=== PATIENT | male | born 1965 | race Caucasian/White ===

== ENCOUNTER 2017-06-19 13:52 | Observation (INO) | payer MEDICARE, OTHER ==
--- NOTE | 2017-06-19 14:12 | ER Document Report ---
ED Medical Screen (RME) - General Chief Complaint: Numbness of Face Stated Complaint: FACE AND ARM NUMBNESS Time Seen by Provider: 06/19/17 14:01 Mode of Arrival: Ambulatory Information source: Patient Notes: 51-year-old male presents with sudden numbness from about nipple line up. Patient states he feels strong but his arms feel heavy and numb symptoms started suddenly at 10 AM I have greeted and performed a rapid initial assessment of this patient. A comprehensive ED assessment and evaluation of the patient, analysis of test results and completion of the medical decision making process will be conducted by additional ED providers. PHYSICAL EXAMINATION: GENERAL: Well-appearing, well-nourished and in no acute distress. HEAD: Atraumatic, normocephalic. EYES: Pupils equal round extraocular movements intact, conjunctiva are normal. ENT: Nares patent NECK: Normal range of motion LUNGS: No respiratory distress Musculoskeletal: Normal range of motion NEUROLOGICAL: Normal speech, normal gait. Subjective paresthesia of hands and had PSYCH: Normal mood, normal affect. SKIN: Warm, Dry, normal turgor, no rashes or lesions noted. TRAVEL OUTSIDE OF THE [place] IN LAST 30 DAYS: No - Related Data Allergies/Adverse Reactions: clarithromycin [From Biaxin] Allergy (Verified 06/19/17 13:55) Home Medications: Current Home Medications Diazepam [Diazepam] 2 mg PO BID 06/19/17 [History] Duloxetine HCl [Duloxetine HCl] 60 mg PO DAILY 06/19/17 [History] Fentanyl [Fentanyl] 1 each TOP Q3DAYS 06/19/17 [History] Gabapentin [Neurontin] 600 mg PO TID 06/19/17 [History] Oxycodone HCl [Oxycodone HCl] 10 mg PO Q8H PRN 06/19/17 [History] Pravastatin Sodium 40 mg PO QPM 06/19/17 [History] Venlafaxine HCl ER [Effexor Xr 37.5 mg Cap.sr] 75 mg PO DAILY 06/19/17 [History] Past Medical History Renal/ Medical History: Denies: Hx Peritoneal Dialysis Physical Exam - Vital signs Vitals: Temp Pulse Resp BP Pulse Ox 98.4 F 87 18 147/89 H 94 06/19/17 13:56 06/19/17 13:56 06/19/17 13:56 06/19/17 13:56 06/19/17 13:56 Course - Vital Signs Vital signs: Temp Pulse Resp BP Pulse Ox 98.4 F 87 18 147/89 H 94 06/19/17 13:56 06/19/17 13:56 06/19/17 13:56 06/19/17 13:56 06/19/17 13:56
--- NOTE | 2017-06-19 14:37 | RADIOLOGY REPORT (SQ) ---
EXAM DESCRIPTION: CT HEAD WITHOUT COMPLETED DATE/TIME: 06/19/2017 2:25 pm REASON FOR STUDY: numbness head, bilateral arms COMPARISON: None. TECHNIQUE: Axial images acquired through the brain without intravenous contrast. Images reviewed wi th bone, brain and subdural windows. Images stored on PACS. All CT scanners at this facility use dose modulation, iterative reconstruction, and/or weight based d osing when appropriate to reduce radiation dose to as low as reasonably achievable (ALARA). [facility]: Dose Right [facility]: CareDose [facility]: Dose Right [facility]: Teradose 4D [facility]: Smart Vendalize RADIATION DOSE: Up-to-date CT equipment and radiation dose reduction techniques were employed. CTDIv ol: 64.6 mGy. DLP: 1163 mGy-cm. mGy. LIMITATIONS: None. FINDINGS: VENTRICLES: Normal size and contour. CEREBRUM: No masses. No hemorrhage. No midline shift. No evidence for acute infarction. Normal gra y/white matter differentiation. No areas of low density in the white matter. CEREBELLUM: No masses. No hemorrhage. No alteration of density. No evidence for acute infarction. EXTRAAXIAL SPACES: No fluid collections. No masses. ORBITS AND GLOBE: No intra- or extraconal masses. Normal contour of globe without masses. CALVARIUM: No fracture. PARANASAL SINUSES: No fluid or mucosal thickening. SOFT TISSUES: No mass or hematoma. OTHER: Minimal left mastoid effusion. Some adjacent sclerosis as well, likely chronic disease. No e vidence of obstructing nasopharyngeal mass. IMPRESSION: 1. No acute intracranial abnormality. 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 EVIDENCE OF ACUTE STROKE: NO. COMMENT: Quality ID # [id number]: Final reports with documentation of one or more dose reduction techniques (e.g., Automated exposure control, adjustment of the mA and/or kV according to patient size, use of iterative reconstruction technique) TECHNICAL DOCUMENTATION: JOB ID: [id number] [employer]- All Rights Reserved
[2017-06-19 14:56] LABS: PROTHROMBIN TIME 13.3 SEC (11.4-15.4)
[2017-06-19 14:58] LABS: ABSOLUTE BASOPHILS # (AUTO) 0.2 10^3/uL (0.0-0.2); ABSOLUTE LYMPHOCYTES (AUTO) 2.1 10^3/uL (0.5-4.7); ABSOLUTE MONOCYTES (AUTO) 0.9 10^3/uL (0.1-1.4); ABSOLUTE NEUT (AUTO) 10.9 10^3/uL (1.7-8.2); BASOPHILS % (AUTO) 1.1 % (0-2); EOSINOPHILS % (AUTO) 0.1 % (0-6); HEMOGLOBIN 14.7 g/dL (13.5-17.0); HGB HCT DIFFERENCE 1.1; LYMPHOCYTES % (AUTO) 14.9 % (13-45); MEAN CORPUSCULAR HEMOGLOBIN 31.3 pg (27.0-33.4); MEAN CORPUSCULAR HGB CONC 34.2 g/dL (32.0-36.0); MEAN CORPUSCULAR VOLUME 91 fl (80-97); MONOCYTES % (AUTO) 6.5 % (3-13); RED CELL DISTRIBUTION WIDTH 13.2 % (11.5-14.0); SEGMENTED NEUTROPHILS % (AUTO) 77.4 % (42-78); WHITE BLOOD COUNT 14.1 10^3/uL (4.0-10.5)
--- NOTE | 2017-06-19 15:08 | RADIOLOGY REPORT (SQ) ---
EXAM DESCRIPTION: CHEST SINGLE VIEW COMPLETED DATE/TIME: 06/19/2017 2:51 pm REASON FOR STUDY: numbness head, bilateral arms COMPARISON: None. NUMBER OF VIEWS: One view. TECHNIQUE: Single frontal radiographic view of the chest acquired. LIMITATIONS: None. FINDINGS: LUNGS AND PLEURA: No opacities, masses or pneumothorax. No pleural effusion. MEDIASTINUM AND HILAR STRUCTURES: No masses. Contour normal. HEART AND VASCULAR STRUCTURES: Heart normal in size. Normal vasculature. BONES: No acute findings. HARDWARE: None in the chest. OTHER: No other significant finding. IMPRESSION: NO SIGNIFICANT RADIOGRAPHIC FINDING IN THE CHEST. TECHNICAL DOCUMENTATION: JOB ID: [id number] [employer]- All Rights Reserved
[2017-06-19 15:10] LABS: ALANINE AMINOTRANSFERASE 17 U/L (21-72); ALBUMIN 4.9 g/dL (3.5-5.0); ALKALINE PHOSPHATASE 79 U/L (38-126); ANION GAP 17 (5-19); ASPARTATE AMINO TRANSFERASE 17 U/L (17-59); BILIRUBIN,DIRECT 0.4 mg/dL (0.0-0.4); BILIRUBIN,TOTAL 0.6 mg/dL (0.2-1.3); BLOOD UREA NITROGEN 10 mg/dL (7-20); CALCIUM 10.5 mg/dL (8.4-10.2); CARBON DIOXIDE 22 mmol/L (22-30); CHLORIDE 106 mmol/L (98-107); CREATINE KINASE 37 U/L (55-170); CREATININE RESULT 0.57 mg/dL (0.52-1.25); GLUCOSE 138 mg/dL (75-110); POTASSIUM 3.7 mmol/L (3.6-5.0); SODIUM 144.9 mmol/L (137-145); TOTAL PROTEIN 7.8 g/dL (6.3-8.2)
[2017-06-19 15:23] LABS: CREATINE KINASE MB < 0.22 ng/mL (<4.55); TROPONIN I < 0.012 ng/mL
--- NOTE | 2017-06-19 15:25 | ER Document Report ---
ED General - General Mode of Arrival: Ambulatory Information source: Patient TRAVEL OUTSIDE OF THE [place] IN LAST 30 DAYS: No - HPI Onset: This morning Associated symptoms: Diarrhea <JULY DONATO - Last Filed: 06/19/17 23:07> <AYDEN UGARTE - Last Filed: 06/19/17 23:19> - General Chief Complaint: Numbness of Face Stated Complaint: FACE AND ARM NUMBNESS Time Seen by Provider: 06/19/17 14:01 Notes: Patient is a 51 year old male with a history of chronic back pain presents to the emergency department complaining of numbness in the arms and face onset around 0900 today. Patient states he had diarrhea in the morning which he felt came from a bug he caught while in the hospital with his brother. Patient states that he was driving home when he started feeling numb and tingly from the nipple line and in his arms and hands. Patient states that he feels weak, and that when he lifts his arms it feels like hes "lifting 400 lbs". Patient denies any pain, headaches, or stiffness in neck. Patient currently has a Fentanyl Transdermal patch that he uses for his chronic back pain. (JULY DONATO) - Related Data Allergies/Adverse Reactions: clarithromycin [From Biaxin] Allergy (Verified 06/19/17 13:55) Home Medications: Current Home Medications Aspirin [Ecotrin 81 mg EC Tablet] 81 mg PO DAILY 06/19/17 [History] Cetirizine HCl [Zyrtec 10 mg Tablet] 10 mg PO DAILY 06/19/17 [History] Diazepam [Diazepam] 2 mg PO BID 06/19/17 [History] Duloxetine HCl [Duloxetine HCl] 60 mg PO DAILY 06/19/17 [History] Fentanyl [Fentanyl] 75 mcg TOP Q3DAYS 06/19/17 [History] Fish Oil/Dha/Epa [Fish Oil 1,200 mg Fish Oil] 1 cap PO DAILY 06/19/17 [History] Gabapentin [Neurontin] 600 mg PO TID 06/19/17 [History] Multivitamin [Multivitamins] 1 cap PO DAILY 06/19/17 [History] Oxycodone HCl [Oxycodone HCl] 10 mg PO Q8H PRN 06/19/17 [History] Pravastatin Sodium 40 mg PO QPM 06/19/17 [History] Venlafaxine HCl ER [Effexor Xr 37.5 mg Cap.sr] 37.5 mg PO BID 06/19/17 [History] Past Medical History - General Information source: Patient - Social History Smoking Status: Current Every Day Smoker Frequency of alcohol use: Rare Drug Abuse: Marijuana - Occasional marijuana usage Family History: Hyperlipidemia, Hypertension Patient has suicidal ideation: No Patient has homicidal ideation: No <JULY DONATO - Last Filed: 06/19/17 23:07> Review of Systems - Review of Systems Constitutional: No symptoms reported EENT: No symptoms reported Cardiovascular: No symptoms reported Respiratory: No symptoms reported Gastrointestinal: See HPI, Diarrhea Genitourinary: No symptoms reported Male Genitourinary: No symptoms reported Musculoskeletal: No symptoms reported Skin: No symptoms reported Hematologic/Lymphatic: No symptoms reported Neurological/Psychological: See HPI, Numbness - Bilateral UE and head., Tingling - Bilater UE, Head <JULY DONATO - Last Filed: 06/19/17 23:07> Physical Exam <JULY DONATO - Last Filed: 06/19/17 23:07> <AYDEN UGARTE - Last Filed: 06/19/17 23:19> - Vital signs Vitals: Temp Pulse Resp BP Pulse Ox 98.4 F 87 18 147/89 H 94 06/19/17 13:56 06/19/17 13:56 06/19/17 13:56 06/19/17 13:56 06/19/17 13:56 - Notes Notes: GENERAL: Alert, interacts well. No acute distress. HEAD: Normocephalic, atraumatic. EYES: Pupils equal, round, and reactive to light. Extraocular movements intact. ENT: Oral mucosa moist, tongue midline. NECK: Full range of motion. Supple. Trachea midline. LUNGS: Clear to auscultation bilaterally, no wheezes, rales, or rhonchi. No respiratory distress. HEART: Regular rate and rhythm. No murmurs, gallops, or rubs. ABDOMEN: Soft, non-tender. Non-distended. Bowel sounds present in all 4 quadrants. EXTREMITIES: Moves all 4 extremities spontaneously. No edema, radial and dorsalis pedis pulses 2/4 bilaterally. No cyanosis. NEUROLOGICAL: Alert and oriented x3. Normal speech. cranial nerves II through XII grossly intact. Biceps and patellar DTRs 2+ bilaterally. Negative pronator drift. Decreased sensation across the RUE. PSYCH: Normal affect, normal mood. SKIN: Warm, dry, normal turgor. No rashes or lesions noted. (JULY DONATO) - Extremities Notes: Unable to differentiate sharp dull sensation diffusely across the right upper extremity. (AYDEN UGARTE) Course - Laboratory Result Diagrams: 06/19/17 14:35 06/19/17 14:35 <JULY DONATO - Last Filed: 06/19/17 23:07> - Laboratory Result Diagrams: 06/19/17 14:35 06/19/17 14:35 <AYDEN UGARTE - Last Filed: 06/19/17 23:19> - Re-evaluation Re-evalutation: 06/19/17 15:36 CBC shows leukocytosis of 14.1, no symptoms to suggest acute infection, uncertain why there is a leukocytosis, coags normal, CMP shows relatively normal glucose as he is not fasting at 138, otherwise unremarkable, cardiac enzymes negative 1, CT scan of head is negative, chest x-ray shows low lung volumes but otherwise unremarkable. No evidence of pneumothorax or pneumonia. I did personally review these films as well as reviewed the reports from radiology. On examination patient has an NIH stroke scale of 1, decreased sensation across the right upper extremity, no other neurologic deficits. At this time am concerned for a very mild stroke. I discussed my concerns with Dr. Dominguez who agrees to place the patient on his service in observation status on the telemetry care floor. Patient has been given aspirin, counseled on the plan and agrees with admission for observation. 06/19/17 23:19 (AYDEN UGARTE) - Vital Signs Vital signs: Temp Pulse Resp BP Pulse Ox 98.5 F 73 16 133/81 H 96 06/19/17 19:02 06/19/17 20:00 06/19/17 20:00 06/19/17 20:00 06/19/17 20:00 - Laboratory Laboratory results interpreted by me: 06/19/17 06/19/17 14:35 14:35 WBC 14.1 H Absolute Neutrophils 10.9 H Glucose 138 H Calcium 10.5 H ALT 17 L Creatine Kinase 37 L - EKG Interpretation by Me Additional EKG results interpreted by me: 06/19/17 15:36 EKG shows sinus rhythm at a rate of 74, normal axis, normal intervals, no ST segment elevations or depressions, there are isolated nonspecific T-wave inversions in lead III per my interpretation. (AYDEN UGARTE) Discharge <JULY DONATO - Last Filed: 06/19/17 23:07> - Discharge Admitting Provider: Hospitalist - [facility] Admitted: Telemetry <AYDEN UGARTE - Last Filed: 06/19/17 23:19> - Discharge Clinical Impression: Acute CVA (cerebrovascular accident) Hypertension Qualifiers: Hypertension type: essential hypertension Qualified Code(s): I10 - Essential ( primary) hypertension Condition: Stable Disposition: ADMITTED OBSERVATION Scribe Attestation: 06/19/17 23:19 I personally performed the services described in the documentation, reviewed and edited the documentation which was dictated to the scribe in my presence, and it accurately records my words and actions. (AYDEN UGARTE) Scribe Documentation - Scribe Written by Marianna:: Marianna Hernandez, 06/19/2017 16:31 acting as scribe for :: Earlene <JULY DONATO - Last Filed: 06/19/17 23:07> ED NIH Stroke Scale - NIH Stroke Scale When completed:: Before Alteplase *: 1. NIH scale should be completed with appropriate accompanying assessment tools. *: 2. The NIH should reflect what the patient is capable of doing and should not be coached by the clinician. 1a. Level of Consciousness: 0=Alert;keenly responsive -: 1=Drowsy -: 2=Obtunded -: 3=Coma/unresponsive or reflex to noxious stimuli. 1a. Responses: 0 1b. Orientation Questions: a. What month is it? -: b. How old are you? -: 0=Answers both questions correctly. -: 1=Answers one question correctly or patient is intubated or has orotracheal trauma. -: 2=Answers neither question correctly. 1b. Responses: 0 1c. Response to commands: a. Open and close eyes? -: b. Connie Scratcher and release hand? -: Credit is given despite weakness. Demonstration of task is permitted. Substitute command if hands cannot be used. -: 0=Performs both tasks correctly -: 1=Performs one task correctly -: 2=Performs neither task correctly 1c. Responses: 0 2. Gaze: Establish eye contact and instruct patient to "Follow my finger" -: 0=Normal -: 1=Partial gaze palsy. Gaze is abnormal in one or both eyes, but where forced deviation or total gaze paresis is not present. -: 2=Forced deviation or total gaze paresis. 2. Responses: 0 3. Visual Nielsen: Sees fingers in all four quadrants. -: 0=No visual loss. -: 1=Partial hemianopsia. -: 2=Complete hemianopsia. -: 3=Bilateral hemianopsia (including Cortical blindness) 3. Responses: 0 4. Facial Movement: Instruct patient to: -: a. Show me your teeth -: b. Raise your eyebrows -: c. Close your eyes -: d. Smile -: 0=Normal symmetrical movement -: 1=Minor paralysis (flattened nasolabial fold, asymmetry on smiling). -: 2=Partial paralysis (total or near total paralysis of lower face). -: 3=Complete paralysis of upper and lower face 4. Responses: 0 5. Motor functions (left arm): Alternate sides and extend each arm with palms down (90 degrees if sitting or 45 degrees for supine). -: 0=No drift;limb holds for full 10 seconds. -: 1=Drift; limb holds but drifts down before full 10 seconds, but does not hit bed. -: 2=Some effort against gravity; limb cannot get to or maintain position. -: 3=No effort against gravity; limb falls. -: 4=No movement. -: UN=Amputation, joint fusion, explain in comments. 5. Responses (left arm): 0 5. Motor Functions (right arm): Alternate sides and extend each arm with palms down (90 degrees if sitting or 45 degrees for supine). -: 0=No drift;limb holds for full 10 seconds. -: 1=Drift; limb holds but drifts down before full 10 seconds, but does not hit bed. -: 2=Some effort against gravity; limb cannot get to or maintain position. -: 3=No effort against gravity; limb falls. -: 4=No movement. -: UN=Amputation, joint fusion, explain in comments. 5. Responses (right arm): 0 6. Motor Functions (left leg): With patient lying supine, alternate sides and extend each leg (30 degrees always while supine). -: 0=No drift, leg holds position for full 5 seconds -: 1=Drift; leg falls before full 5 seconds but does not hit bed. -: 2=Some effort against gravity, leg falls to bed but some effort against gravity. -: 3=No effort against gravity, leg falls to bed immediately. -: 4=No movement. -: UN=Amputation, joint fusion; explain in comments. 6. Responses (left leg): 0 6. Motor Functions (right leg): With patient lying supine, alternate sides and extend each leg (30 degrees always while supine). -: 0=No drift, leg holds position for full 5 seconds -: 1=Drift; leg falls before full 5 seconds but does not hit bed. -: 2=Some effort against gravity, leg falls to bed but some effort against gravity. -: 3=No effort against gravity, leg falls to bed immediately. -: 4=No movement. -: UN=Amputation, joint fusion; explain in comments. 6. Responses (right leg): 0 7. Limb Ataxia: With eyes open instruct patient to: -: a. "Touch your finger to your nose". -: b. "Touch your heel to your bentley" -: 0=Absent -: 1=Present in one limb. -: 2=Present in two limbs. -: UN=Amputation or joint fusion; explain in comments. 7. Responses: 0 8. Sensory: Test sensation using pinprick or noxious stimuli. Test as many body parts as possible. -: 0=Normal;no sensory loss -: 1=Mile to moderate sensory loss (patient feels pin prick but is less sharp on affected side). -: 2=Severe or total sensory loss. 8. Responses: 1 9. Best Language: Instruct patient to: -: a. "Describe what you see in this picture." -: b. "Name the items in this picture." -: c. "Read these sentences." -: 0=No aphasia, normal -: 1=Mild to moderate aphasia. -: 2=Severe aphasia -: 3=Mute, global aphasia, no usable speech or auditory comprehension. 9. Responses: 0 10. Articulation, Dysarthia: Instruct patient to: -: "Read these words" or "Repeat these words" -: 0=Normal -: 1=Mild to moderate; patient may slur some words but can be understood without difficulty. -: 2=Severe; patients speech so slurred as to be unintelligible in the absence of dysphasia. -: UN=Intubated or other physical barrier, explain in comments. 10. Responses: 0 11. Extinction or inattention: 0=No abnormality -: 1= Visual, tactile, auditory, spatial, or personal inattention or extinction to bilateral simulation in one or the sensory modalities. -: 2=Profound myranda-inattention or myranda-inattention to more than one modality; does not recognize own hand. 11. Responses: 0 Total Score: 1 <AYDEN UGARTE - Last Filed: 06/19/17 23:19> ED Alteplase Inc/Exc Criteria - Date/Time patient last known well: Date/Time: 06/19/17 10:00 a.m. - Date/Time patient arrived in ED: _: 06/19/17 13:56 - Inclusion Criteria: 1: Patient presented to ED within 3 hours of acute ischemic stroke symptom onset ? -: No 2: Did baseline CT exclude intracranial hemorrhage and/or other risk factors? -: Yes 3: Is the age of the patient 18 years of age or greater? -: Yes : If any of the above questions are answered "NO" then stop, patient is not a candidate for Alteplase, : If all of the above questions are answered "YES" then continue with Exclusion Criteria. - Exclusion Criteria: 1: Is there evidence of intracranial hemorrhage on baseline CT? -: No 2: Is there suspicion of subarachnoid hemorrhage (even if CT negative)? -: No 3: Is there a history of serious head trauma, recent previous stroke or HI within 3 months? -: No 4: Does the patient have a clinical presentation consistent with HI or post-HI pericarditis? -: No 5: Is there history of intracranial hemorrhage? -: No 6: On repeated measurement is Systolic BP greater than 185mmHg or Diastolic BP greater that 110 mmHg and is aggressive treatment needed to reduce blood pressure to these limits (e.g. constant infusion of an anti-hypertensive)? -: No 7: Did the patient awake with stroke symptoms? -: No 8: Has the patient had a lumbar puncture or an arterial puncture at a non- compressile site within 7 days? -: No 9: With in the last 14 days did the patient have surgery or major trauma? -: No 10: Is the patient or less than 2 weeks? -: No 11: Was there any active bleeding or acute trauma? -: No 12: Does the patient have intracranial neoplasm, arteriovenous malformation or aneurysm? -: No 13: Does the patient have abnormal glucose (less than 50 or greater than 400mg/ dl)? Record glucose in Comment. 14: Patient has rapidly improving symptoms at the time Alteplase is to be Administered. -: No 15: Does the patient have any risks for bleeding, including but not limited to: a.: Current use of Coumadin with PT greater than 15 seconds or INR greater than 1.7. b.: Current use of Pradaxa (Dabigatran). c.: Heparin administereed within the past 48 hours and PTT elevated. d.: Platelet count less than 100,000/mm. e.: Major surgery or serious trauma within 14 days. f.: Gastrointestinal or gynecological urinary bleeding within 14 days. g.: Myocardial Infarction (HI) within 3 months. -: No : If the answer to any of the above questions is "YES" then stop, the patient is not a candidate for Alteplase. : If the answer to all of the above questions is "NO" then the patient may be eligible for the Administration of Alteplase. : If the patient is noted to have seizure activity at onset of Stroke symptoms; Consult Neurologist for further evaluation. - The patient is: -: Included and is eligible to receive Alteplase. *Initiate bed placement at higher level of care* --: No Reviewd risks & benefits of thrombolytic therapy: I have reviewed the risks and benefits of thrombolytic therapy with the patient and/or his/her family. -: Excluded and not eligible to receive Alteplase for the above exclusions. --: Yes -: Excluded and not eligible to receive Alteplase for other reasons (specify in comments): - Diagnosis of TIA: -: Patient presented with transient symptoms that are now resolved and no other neurologic findings are currently present. List symptoms in comments. -: Patient is NOT a candidate for tPA. -: Yes -: ____(put name in comment) has been consulted for admission and continued evaluation of risk factor assessment. Comment: Sangitateed <AYDEN UGARTE - Last Filed: 06/19/17 23:19>
[2017-06-19] MEDS ORDERED: ASPIRIN 325 MG TABLET, ENT COATED PO ONE (15:28)
[2017-06-19] MEDS ORDERED: ACETAMINOPHEN 325 MG TABLET PO PRN (16:28)
[2017-06-19] MEDS ORDERED: ONDANSETRON 4 MG TAB.RAPDIS PO PRN (16:28)
[2017-06-19] MEDS ORDERED: OXYCODONE HCL IR 5 MG TABLET PO PRN (16:33)
--- NOTE | 2017-06-19 16:43 | PDOC H&P ---
History of Present Illness Admission Date/PCP: 06/19/17 16:29 Patient complains of: Numbness and tingling in bilateral arms face and chest to the level of his nipples. History of Present Illness: HAYDEN MCNULTY is a 51 year old male with history of chronic pain on a fentanyl patch and oxycodone who presents with complaints of numbness and tingling in his face neck chest and bilateral arms. He reports that he was driving a car today approximately 10:30 AM and began having symptoms. He did not have any weakness associated with this. He just had numbness and some tingling in his body as described above. This continued and he decided to come to the hospital. He denies having any weakness associated with this. He denies having any dysarthria. Denies any dysphasia. Denies any difficulty with his vision. He had been driving quite a while in his car and has been doing a lot of traveling recently. He denies any headache. He denies any loss of consciousness. Denies any lower extremity symptoms. Denies any bowel or bladder dysfunction. He does relate having an injury when he was 15 years old that caused him to have chronic low back pain. He has never had any imaging done of his neck. Patient is admitted for presumed TIA. Past Medical History Cardiac Medical History: Reports: Hyperlipidema Pulmonary Medical History: Reports: None EENT Medical History: Reports: None Endocrine Medical History: Reports: None Renal/ Medical History: Reports: None Malignancy Medical History: Reports: None GI Medical History: Reports: None Musculoskeltal Medical History: Reports: Other - Chronic low back pain. Skin Medical History: Reports: None Psychiatric Medical History: Reports: None Traumatic Medical History: Reports: Other - Patient fell off a roof at age 15 and has had chronic back pain since then Hematology: Reports: None Infectious Medical History: Reports: None Past Surgical History Past Surgical History: Reports: Orthopedic Surgery - right & left hip arthroplasty. L4-L5 spinal fusion, Tonsillectomy Social History Information Source: Patient Lives with: Spouse/Significant other Smoking Status: Current Every Day Smoker Frequency of Alcohol Use: Rare Hx Recreational Drug Use: No Drugs: None Hx Prescription Drug Abuse: No - Advance Directive Resuscitation Status: Full Code Surrogate healthcare decision maker:: His Family History Family History: Hyperlipidemia, Hypertension Family History: Father at age 77 and hypertension. Mother at age 69 and had a CVA. Parental Family History Reviewed: Yes Children Family History Reviewed: No Sibling(s) Family History Reviewed.: No Medication/Allergy Home Medications: Aspirin [Ecotrin 81 mg EC Tablet] 81 mg PO DAILY 06/19/17 Cetirizine HCl [Zyrtec 10 mg Tablet] 10 mg PO DAILY 06/19/17 Diazepam [Diazepam] 2 mg PO BID 06/19/17 Duloxetine HCl [Duloxetine HCl] 60 mg PO DAILY 06/19/17 Fentanyl [Fentanyl] 75 mcg TOP Q3DAYS 06/19/17 Fish Oil/Dha/Epa [Fish Oil 1,200 mg Fish Oil] 1 cap PO DAILY 06/19/17 Gabapentin [Neurontin] 600 mg PO TID 06/19/17 Multivitamin [Multivitamins] 1 cap PO DAILY 06/19/17 Oxycodone HCl [Oxycodone HCl] 10 mg PO Q8H PRN 06/19/17 Pravastatin Sodium 40 mg PO QPM 06/19/17 Venlafaxine HCl ER [Effexor Xr 37.5 mg Cap.sr] 37.5 mg PO BID 06/19/17 Allergies/Adverse Reactions: clarithromycin [From Biaxin] Allergy (Verified 06/19/17 13:55) Review of Systems Constitutional: ABSENT: chills, fever(s), headache(s), weight gain, weight loss Eyes: ABSENT: visual disturbances Ears: ABSENT: hearing changes Cardiovascular: ABSENT: chest pain, dyspnea on exertion, edema, orthropnea, palpitations Respiratory: ABSENT: cough, hemoptysis Gastrointestinal: ABSENT: abdominal pain, constipation, diarrhea, hematemesis, hematochezia, nausea, vomiting Genitourinary: ABSENT: dysuria, hematuria Musculoskeletal: PRESENT: back pain Integumentary: ABSENT: rash, wounds Neurological: PRESENT: as per HPI, numbness. ABSENT: focal weakness, weakness Psychiatric: ABSENT: anxiety, depression Endocrine: ABSENT: cold intolerance, heat intolerance, polydipsia, polyuria Hematologic/Lymphatic: ABSENT: easy bleeding, easy bruising Physical Exam Vital Signs: Temp Pulse Resp BP Pulse Ox 98.4 F 69 18 147/89 H 93 06/19/17 13:56 06/19/17 14:30 06/19/17 14:30 06/19/17 14:30 06/19/17 15:01 General appearance: PRESENT: no acute distress, well-developed, well-nourished Head exam: PRESENT: atraumatic, normocephalic Eye exam: PRESENT: conjunctiva pink, EOMI, PERRLA. ABSENT: scleral icterus Ear exam: PRESENT: normal external ear exam Mouth exam: PRESENT: moist, tongue midline Neck exam: ABSENT: carotid bruit, JVD, lymphadenopathy, thyromegaly Respiratory exam: PRESENT: clear to auscultation blanca. ABSENT: rales, rhonchi, wheezes Cardiovascular exam: PRESENT: RRR. ABSENT: diastolic murmur, rubs, systolic murmur Pulses: PRESENT: normal dorsalis pedis pul Vascular exam: PRESENT: normal capillary refill GI/Abdominal exam: PRESENT: normal bowel sounds, soft. ABSENT: distended, guarding, mass, organolmegaly, rebound, tenderness Rectal exam: PRESENT: deferred Extremities exam: ABSENT: calf tenderness, clubbing, pedal edema Neurological exam: PRESENT: alert, awake, oriented to person, oriented to place , oriented to time, oriented to situation, CN II-XII grossly intact. ABSENT: motor sensory deficit Psychiatric exam: PRESENT: appropriate affect Skin exam: PRESENT: dry, intact, warm. ABSENT: cyanosis, rash Results Impressions: Chest X-Ray 06/19/17 14:11 IMPRESSION: NO SIGNIFICANT RADIOGRAPHIC FINDING IN THE CHEST. Head CT 06/19/17 14:11 IMPRESSION: 1. No acute intracranial abnormality. 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 EVIDENCE OF ACUTE STROKE: NO. Assessment & Plan - Diagnosis (1) TIA (transient ischemic attack) Is this a current diagnosis for this admission?: Yes Plan: Is not clear whether this was truly a TIA or not. The patient has bilateral symptoms that are just numbness and tingling sensation. It is possible this could be a small CVA at the level of the kory however I am suspicious that this is actually a cervical spine issue given the bilateral upper extremity nature of his symptoms. Patient has been taking 81 mg of aspirin daily. Will increase that to 325 mg a day and monitor as an observation patient. We will obtain an MRI of the brain as well as carotid Dopplers. There is no history of any type of cardiac arrhythmias we will not get an echo at this time. The patient already is on a statin. Patient also has been driving a car quite a bit because of his brother's health issues and that may be contributing to some cervical spine issues. (2) Hyperlipidemia Is this a current diagnosis for this admission?: Yes Plan: Continue with Pravachol. (3) Anxiety Is this a current diagnosis for this admission?: Yes Plan: Patient is on Valium, Cymbalta, Effexor. He did confirm that he does take both Cymbalta and Effexor. (4) Chronic pain Is this a current diagnosis for this admission?: Yes Plan: We will continue with the fentanyl patch as well as the oxycodone IR. (5) Hypertension Qualifiers: Hypertension type: essential hypertension Qualified Code(s): I10 - Essential (primary) hypertension Is this a current diagnosis for this admission?: Yes - Time Time Spent: 50 to 70 Minutes - Plan Summary Plan Summary: We will admit as observation. If his MRI is unremarkable. He could get an outpatient cervical spine MRI if he continues to have symptoms.
--- NOTE | 2017-06-19 17:32 | RADIOLOGY REPORT (SQ) ---
EXAM DESCRIPTION: MRI HEAD WITHOUT COMPLETED DATE/TIME: 06/19/2017 5:20 pm REASON FOR STUDY: upper extremity numbness COMPARISON: Noncontrast head CT 06/19/2017 TECHNIQUE: Multiplanar imaging includes non-contrasted T1, T2, FLAIR, and diffusion with ADC map seq uences. Images stored on PACS. LIMITATIONS: None. FINDINGS: ANATOMY: No anomalies. Normal vascular flow voids. Pituitary fossa normal. CSF SPACES: Normal in size and contour. No hemorrhage. CEREBRUM: Sulci and gyri normal in size and contour. Normal white matter signal on FLAIR imaging. No evidence of hemorrhage, mass, or extraaxial fluid collection. POSTERIOR FOSSA: No signal alteration. No hemorrhage. No edema, masses or mass effect. Internal roxana tory canals and cerebello-pontine angles normal. Incidental note is again made of a left mastoid eff usion. DIFFUSION IMAGING: Negative for acute or sub-acute infarction. ORBITS: No masses. Globes normal. PARANASAL SINUSES: The left maxillary sinus appears diminutive. No fluid levels. Mucosa normal. OTHER: No other significant finding. IMPRESSION: NORMAL MRI OF THE BRAIN WITHOUT INTRAVENOUS GADOLINIUM CONTRAST. LEFT MASTOID AIR CELL EFFUSION. EVIDENCE OF ACUTE STROKE: NO. TECHNICAL DOCUMENTATION: JOB ID: [id number] [employer]- All Rights Reserved
[2017-06-19] MEDS: GABAPENTIN 300 MG CAPSULE PO SCH (19:34)
[2017-06-19] MEDS: DIAZEPAM 2 MG TABLET PO SCH (19:36)
[2017-06-19] MEDS ORDERED: VENLAFAXINE HCL 37.5 MG CAP.SR.24H PO ONE (19:39)
--- NOTE | 2017-06-19 19:41 | RADIOLOGY REPORT (SQ) ---
EXAM DESCRIPTION: CAROTID DOPPLER COMPLETED DATE/TIME: 06/19/2017 6:31 pm REASON FOR STUDY: tia COMPARISON: None. TECHNIQUE: Grayscale ultrasound, Doppler velocity and spectra, and color Doppler images acquired of the extra-cranial carotid and vertebral arteries. Images stored on PACS. LIMITATIONS: None. FINDINGS: RIGHT CAROTID CCA Velocities: Within normal limits. ICA Velocities Peak systolic 86 cm/s. End diastolic 35 cm/s. Proximal ICA/CCA peak systolic ratio 1.6. Spectral normal. Scant calcified plaque is seen within the bulb and proximal internal carotid artery . LEFT CAROTID CCA Velocities: Within normal limits. ICA Velocities Peak systolic 93 cm/s. End diastolic 23 cm/s. Proximal ICA/CCA peak systolic ratio 1.2. Spectral normal. Calcified and noncalcified atheromatous plaque is seen within the bulb extending in to the proximal internal carotid artery. VERTEBRAL ARTERIES: Antegrade flow. Normal waveforms. SUBCLAVIAN ARTERIES: No finding. OTHER: No other significant finding. IMPRESSION: NO HEMODYNAMICALLY SIGNIFICANT STENOSIS. COMMENT: Quality ID #[id number]: Velocity criteria are extrapolated from the diameter data as defined by t he Society of Radiologists in Ultrasound Consensus Conference. Radiology 2003: 229; 340-346. TECHNICAL DOCUMENTATION: JOB ID: [id number] [employer]- All Rights Reserved
[2017-06-19] MEDS: VENLAFAXINE HCL 37.5 MG CAP.SR.24H PO SCH (19:50)
--- NOTE | 2017-06-19 21:12 | EKG REPORT ---
SEVERITY:- OTHERWISE NORMAL ECG - SINUS RHYTHM EARLY TRANSITION : Confirmed by: Justo Ho MD 19-Jun-2017 21:11:47
[2017-06-19] MEDS ORDERED: SIMVASTATIN 40 MG TABLET PO SCH (22:00)
[2017-06-20] MEDS ORDERED: OXYCODONE HCL IR 5 MG TABLET PO PRN (00:11)
[2017-06-20 07:57] VITALS: BP 112/78
[2017-06-20] MEDS: GABAPENTIN 300 MG CAPSULE PO SCH (09:10)
[2017-06-20] MEDS: DIAZEPAM 2 MG TABLET PO SCH (09:11)
[2017-06-20] MEDS: VENLAFAXINE HCL 37.5 MG CAP.SR.24H PO SCH (09:17)
[2017-06-20] MEDS ORDERED: CETIRIZINE 10 MG TABLET PO SCH (10:00)
[2017-06-20] MEDS ORDERED: OMEGA-3 ACID ETHYL ESTERS 1 GM CAPSULE PO SCH (10:00)
[2017-06-20] MEDS ORDERED: MULTIVITAMIN TABLET PO SCH (10:00)
[2017-06-20] MEDS ORDERED: ASPIRIN 325 MG TABLET, ENT COATED PO SCH (10:00)
[2017-06-20] MEDS ORDERED: DULOXETINE HCL 30 MG CAPSULE.DR PO SCH (10:00)
--- NOTE | 2017-06-20 10:31 | PDOC DISCHARGE SUMMARY ---
General - Admit/Disc Date/PCP Admission Date/Primary Care Provider: 06/19/17 16:28 Discharge Date: 06/20/17 - Discharge Diagnosis (1) TIA (transient ischemic attack) Is this a current diagnosis for this admission?: Yes Summary: The patient had numbness of his bilateral upper extremities and neck. Is unclear whether this was from a TIA versus cervical spine radiculopathy. The patient however has had resolution of symptoms. We will continue with the higher dose of aspirin 325 mg daily. MRI and carotid Dopplers were unremarkable. (2) Hyperlipidemia Is this a current diagnosis for this admission?: Yes (3) Anxiety Is this a current diagnosis for this admission?: Yes (4) Chronic pain Is this a current diagnosis for this admission?: Yes (5) Hypertension Is this a current diagnosis for this admission?: Yes - Additional Information Resuscitation Status: Full Code Discharge Diet: Cardiac Discharge Activity: Activity As Tolerated Home Medications: Cetirizine HCl [Zyrtec 10 mg Tablet] 10 mg PO DAILY 06/19/17 Diazepam 2 mg PO BID 06/19/17 Duloxetine HCl 60 mg PO DAILY 06/19/17 Fentanyl 75 mcg TOP Q3DAYS 06/19/17 Fish Oil/Dha/Epa [Fish Oil 1,200 mg Fish Oil] 1 cap PO DAILY 06/19/17 Gabapentin [Neurontin] 600 mg PO TID 06/19/17 Multivitamin [Multivitamins] 1 cap PO DAILY 06/19/17 Oxycodone HCl 10 mg PO Q8H PRN 06/19/17 Pravastatin Sodium 40 mg PO QPM 06/19/17 Venlafaxine HCl ER [Effexor Xr 37.5 mg Cap.sr] 37.5 mg PO BID 06/19/17 Aspirin [Ecotrin 325 mg EC Tablet] 325 mg PO DAILY tabec 06/20/17 History of Present Illness History of Present Illness: HAYDEN MCNULTY is a 51 year old male with history of chronic pain on a fentanyl patch and oxycodone who presents with complaints of numbness and tingling in his face neck chest and bilateral arms. He reports that he was driving a car today approximately 10:30 AM and began having symptoms. He did not have any weakness associated with this. He just had numbness and some tingling in his body as described above. This continued and he decided to come to the hospital. He denies having any weakness associated with this. He denies having any dysarthria. Denies any dysphasia. Denies any difficulty with his vision. He had been driving quite a while in his car and has been doing a lot of traveling recently. He denies any headache. He denies any loss of consciousness. Denies any lower extremity symptoms. Denies any bowel or bladder dysfunction. He does relate having an injury when he was 15 years old that caused him to have chronic low back pain. He has never had any imaging done of his neck. Patient is admitted for presumed TIA. Hospital Course Hospital Course: 51-year-old male who presented with bilateral arm numbness and tingling. The patient was admitted as a presumed TIA. He had unremarkable telemetry overnight. MRI of the brain showed no acute event. Carotid Dopplers also were normal. Echocardiogram was not obtained as he did not have any cardiac arrhythmias. Is not entirely clear whether this was a true TIA versus cervical spine disease given the bilateral nature of his symptoms. The patient however has had complete resolution of his symptoms. The patient was on aspirin 81 mg daily prior to admission and his aspirin dose has been increased to 325 mg daily. I have instructed the patient that if he continues to have symptoms after being discharged he may benefit from a cervical spine MRI. He does have a history of trauma in the past and has had lumbar fusion surgeries because of that. Physical Exam Vital Signs: Temp Pulse Resp BP Pulse Ox 97.8 F 58 L 18 112/78 93 06/20/17 09:34 06/20/17 09:34 06/20/17 09:34 06/20/17 09:34 06/20/17 09:34 Intake & Output 06/19/17 06/20/17 06/21/17 06:59 06:59 06:59 Intake Total 405 Balance 405 Weight 89.2 kg General appearance: PRESENT: no acute distress Eye exam: PRESENT: conjunctiva pink. ABSENT: scleral icterus Mouth exam: PRESENT: moist, tongue midline Neck exam: ABSENT: JVD Respiratory exam: PRESENT: clear to auscultation blanca. ABSENT: rales, rhonchi, wheezes Cardiovascular exam: PRESENT: RRR. ABSENT: diastolic murmur, rubs, systolic murmur GI/Abdominal exam: PRESENT: normal bowel sounds, soft. ABSENT: distended, guarding, mass, organolmegaly, rebound, tenderness Extremities exam: ABSENT: calf tenderness, clubbing, pedal edema Neurological exam: PRESENT: alert, awake, oriented to person, oriented to place , oriented to time, oriented to situation, CN II-XII grossly intact. ABSENT: motor sensory deficit Psychiatric exam: PRESENT: appropriate affect Skin exam: PRESENT: dry, intact, warm. ABSENT: cyanosis, rash Results Impressions: Head MRI 06/19/17 00:00 IMPRESSION: NORMAL MRI OF THE BRAIN WITHOUT INTRAVENOUS GADOLINIUM CONTRAST. LEFT MASTOID AIR CELL EFFUSION. EVIDENCE OF ACUTE STROKE: NO. Chest X-Ray 06/19/17 14:11 IMPRESSION: NO SIGNIFICANT RADIOGRAPHIC FINDING IN THE CHEST. Head CT 06/19/17 14:11 IMPRESSION: 1. No acute intracranial abnormality. 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 EVIDENCE OF ACUTE STROKE: NO. Carotid Doppler Study 06/19/17 16:30 IMPRESSION: NO HEMODYNAMICALLY SIGNIFICANT STENOSIS. Qualifiers PATEINT BEING DISCHARGED WITH ANY OF THE FOLLOWING DIAGNOSIS?: Stroke Stroke Pt being discharged on Anti-thrombolytic therapy?: Yes Stroke Pt being discharged on Anti-coagulation therapy?: No Reason(s) for not prescribing Anti-coagulation therapy:: Not indicated Stroke Pt being discharged on Statins?: Yes Plan Discharge Plan: Patient is discharged home in stable condition. Follow-up with primary care in 2 weeks. Time Spent: Less than 30 Minutes
[2017-06-22] MEDS ORDERED: FENTANYL 75 MCG/HR PATCH.TD72 TOP SCH (10:00)
== END 2017-06-20 10:00 | disposition home or self-care (01) ==
LOC: ER 13:52 → EH 16:28 → UNDOADMOB 16:29 → 3S 18:22
PROVIDERS: ADMIT Internal Medicine; ATTEND Internal Medicine
DX: G45.9 Transient cerebral ischemic attack, unspecified (principal); E78.5 Hyperlipidemia, unspecified; F41.9 Anxiety disorder, unspecified; G89.29 Other chronic pain; M54.5 Low back pain; T14.90XS Injury, unspecified, sequela; W13.2XXS Fall from, out of or through roof, sequela; I10 Essential (primary) hypertension; F17.200 Nicotine dependence, unspecified, uncomplicated; R20.0 Anesthesia of skin; R20.2 Paresthesia of skin; R19.7 Diarrhea, unspecified; F12.10 Cannabis abuse, uncomplicated; D72.829 Elevated white blood cell count, unspecified; R29.701 NIHSS score 1; Z79.899 Other long term (current) drug therapy; Z79.82 Long term (current) use of aspirin; Z79.891 Long term (current) use of opiate analgesic; Z98.1 Arthrodesis status; Z96.643 Presence of artificial hip joint, bilateral; Z82.3 Family history of stroke; Z82.49 Family history of ischemic heart disease and other diseases of the circulatory system
CPT/HCPCS: 93005; 99285; 36415; 82553; 82550; 85025; 85610; 85730; 80053; 84484; 93880; 70551; 71010; 70450; 93010; A9270 ×14; J3490 ×2

== ENCOUNTER 2018-08-25 19:42 | Emergency (ER) | payer MEDICARE, OTHER ==
[2018-08-25] MEDS ORDERED: DIPH/PERTUSS(ACELL)/TETANUS VAC/PF 0.5 ML SYR (>=10YO) IM ONE (20:57)
--- NOTE | 2018-08-25 21:05 | ER Document Report ---
HPI - HPI Time Seen by Provider: 08/25/18 20:44 Pain Level: 3 Notes: Patient is a 53-year-old male who presents to the emergency department complaining of a dog bite to his left hand prior to arrival. Patient states that it was his own dog that he was holding the mouth of as it bit a child in his home. Patient states that the dog has not been acting strangely or ill. Immunizations are reported to be up-to-date for the animal, but not for himself. He is unaware of his last tetanus. Patient states that he has no other concerns or complaints. No other significant past medical history. The dog is a pit bull [place]alyo[place]ian mix. The dog is under the custody of animal control at this time for observation. Denies any headache, fever, head injury, neck pain, URI, sore throat, chest pain, palpitations, syncope, cough, shortness of breath, wheeze, dyspnea, abdominal pain, nausea/vomiting/diarrhea, urinary retention, dysuria, hematuria, loss of control of bowel or bladder, numbness/tingling, saddle anesthesia, muscle paralysis/weakness, or rash. - ROS Systems Reviewed and Negative: Yes All other systems reviewed and negative Past Medical History - Social History Smoking Status: Unknown if Ever Smoked Family History: Hyperlipidemia, Hypertension Patient has suicidal ideation: No Patient has homicidal ideation: No - Past Medical History Cardiac Medical History: Reports: Hx Hypercholesterolemia Renal/ Medical History: Denies: Hx Peritoneal Dialysis Past Surgical History: Reports: Hx Orthopedic Surgery - right & left hip arthroplasty. L4-L5 spinal fusion, Hx Tonsillectomy Vertical Provider Document - CONSTITUTIONAL Agree With Documented VS: Yes Notes: PHYSICAL EXAMINATION: GENERAL: Well-appearing, well-nourished and in no acute distress LUNGS: Breath sounds clear to auscultation bilaterally and equal. No wheezes rales or rhonchi. HEART: Regular rate and rhythm without murmurs, rubs, gallops. Musculoskeletal: Left hand: FROM to passive/active. Strength 5+/5. N/V intact distal Extremities: No cyanosis, clubbing, or edema b/l. Peripheral pulses 2+. Capillary refill less than 3 seconds. NEUROLOGICAL: Normal speech, normal gait. Normal sensory, motor exams PSYCH: Normal mood, normal affect. SKIN: Left hand: there is a 0.5cm puncture wound to the left MCP area and an other 0.2cm/0.5cm puncture to the anterolateral palm. No obvious foreign body. - INFECTION CONTROL TRAVEL OUTSIDE OF THE [place] IN LAST 30 DAYS: No Course - Re-evaluation Re-evalutation: 08/25/18 22:15 Patient is an afebrile, well-hydrated, 33-year-old male who presents to the emergency department with a dog bite to his left hand. Vitals are acceptable without any significant tachycardia, tachypnea, or hypoxia. PE is otherwise unremarkable for any obvious retained foreign body, neurovascular compromise, obvious tendon/ligament rupture, obvious fracture/dislocation, septic joint. X- ray was unremarkable for any acute pathology. Wound was thoroughly irrigated and cleansed and wound dressing was placed. One Steri-Strip was utilized over the larger puncture wound to loosely approximate the wound edge to allow for secondary intent. Patient declined any Tylenol or ice. Patient is nontoxic- appearing. Tetanus was updated today. No other labs or imaging warranted at this time based on H&P. I will send him home with a prescription for Augmentin. Conservative measures otherwise for symptoms. Recheck with your PCM in 3-5 days. Consider consult orthopedics. Return to the ED with any worsening/concerning symptoms otherwise as reviewed in discharge. Patient is in agreement. - Vital Signs Vital signs: Temp Pulse Resp BP Pulse Ox 98.1 F 93 12 139/86 H 92 08/25/18 19:52 08/25/18 19:52 08/25/18 19:52 08/25/18 19:52 08/25/18 19:52 Discharge - Discharge Clinical Impression: Dog bite Qualifiers: Encounter type: initial encounter Qualified Code(s): W54.0XXA - Bitten by dog, initial encounter Condition: Stable Disposition: HOME, SELF-CARE Instructions: Animal Bites ([facility]), Augmentin ([facility]) Additional Instructions: Keep the skin clean Wash with soap and water Tylenol/ibuprofen if needed Triple antibiotic ointment daily Take medication as directed Monitor for any worsening symptoms Recheck with your PCM in 3-5 days Consider consult with Orthopedics for ongoing/worsening symptoms Return to the ED with any worsening symptoms and/or development of fever, headache, chest pain, palpitations, syncope, shortness of breath, trouble breathing, abdominal pain, n/v/d, abscess, purulent discharge, red streaks, worsening swelling, or other worsening symptoms that are concerning to you. Prescriptions: Amox Tr/Potassium Clavulanate [Augmentin 875-125 Tablet] 1 tab PO BID 10 Days #20 tablet Forms: Elevated Blood Pressure Referrals: KARLEE MATAMOROS DO [ACTIVE STAFF] - Follow up as needed
--- NOTE | 2018-08-25 21:40 | RADIOLOGY REPORT (SQ) ---
EXAM DESCRIPTION: XR HAND 3 OR MORE VIEWS COMPLETED DATE/TME: 08/25/2018 20:57 CLINICAL HISTORY: 53 years, Male, dog bite left hand, near left MCP and left palm Findings: Bony alignment is anatomic. No fracture or dislocation. Soft tissues are unremarkable. IMPRESSION: No fracture.
[2018-08-25] MEDS ORDERED: AMOXICILLIN TR/POT CLAVULANATE 500-125 MG TAB PO ONE (22:18)
[2018-08-25 22:36] VITALS: BP 129/81
== END 2018-08-25 22:39 | disposition home or self-care (01) ==
LOC: ER 19:42
DX: S61.452A Open bite of left hand, initial encounter (principal); W54.0XXA Bitten by dog, initial encounter; E78.00 Pure hypercholesterolemia, unspecified; Z98.1 Arthrodesis status; Z23 Encounter for immunization
CPT/HCPCS: 99283; 90471; 73130; 90715; A9270